=== PATIENT | female | born 1995 | race Caucasian/White ===

== ENCOUNTER 2020-09-30 19:53 | Emergency (ER) | payer OTHER, SELFPAY ==
[2020-09-30 20:19] VITALS: BP 112/64; PULSE 105; RESP 20; TEMP 37.5; O2SAT 99; BMI 45.3
--- NOTE | 2020-09-30 22:25 | ED_ITS ---
HPI - General Adult General Chief complaint: Skin/Abscess/Foreign Body Stated complaint: bug bite Time Seen by Provider: 09/30/20 22:15 Related Data Previous Rx's Medication Instructions Recorded doxycycline hyclate 100 mg PO BID 7 Days #14 cap 09/30/20 Allergies Allergy/AdvReac Type Severity Reaction Status Date / Time aspirin [ASA] Allergy Intermediate ASHTMA Unverified 12/30/19 19:00 STARTS TO ACT UP AND BLOODY NOSE Review of Systems Review of Systems: Constitutional : No Weight loss, No Fever, No Chills, No Night Sweats, No Fatigue, No Malaise ENT/Mouth : No Hearing loss, No Ear Pain, No Nasal Congestion, No Sinus Pain, No Hoarseness, No sore throat, No Rhinorrhea, No Swallowing Difficulty Eyes: No Eye Pain, No Swelling, No Redness, No Foreign Body, No Discharge, No Vision Changes Cardiovascular : No Chest Pain, No SOB, No Dyspnea on Exertion, No Orthopnea, No Edema, No Palpitations Respiratory : No Cough, No Sputum, No Wheezing, No Smoke Exposure, No Dyspnea Gastrointestinal : No Nausea, No Vomiting, No Diarrhea, No Constipation, No abdominal Pain, No Hematochezia, No Melena Genitourinary : no irregular bleeding, No Dysuria, No Urinary Frequency, No Hematuria, No Urinary Incontinence, No Urgency, No Flank Pain, No Urinary Flow Changes, No Hesitancy Musculoskeletal : No joint pain, No Myalgias, No Joint Swelling Skin : No Skin Lesions, No rash, bug bite Neuro : No Weakness, No Numbness, No Paresthesias, No Loss of Consciousness, No Dizziness, No Headache Psych : No Anxiety/Panic, No Depression, No SI/HI/AH/VH, No Social Issues, Heme/Lymph: No Bruising, No Bleeding,No Lymphadenopathy Endocrine : No Polyuria, No Polydipsia, No Temperature Intolerance Yes all other systems are reviewed and are negative [facility] Social History Social History Advance Directives: No Advance Directives Information Provided: No Physical Exam Vital Signs: Vital Signs: Last Vital Signs Temp 98.5 F 09/30/20 23:45 Pulse 91 09/30/20 23:45 Resp 16 09/30/20 23:45 BP 118/66 09/30/20 23:45 Pulse Ox 99 09/30/20 23:45 Body Mass Index 45.3 Const: General: cooperative, healthy appearing and comfortable Resp: Effort & Inspection: normal respiratory effort and able to speak in complete sentences Auscultation: clear to auscultation bilaterally Cardio: Jugular venous distension: no JVD Rate: regular rate Rhythm: regular rhythm Skin: General skin exam: no rashes or lesions noted, elasticity normal, turgor normal and erythema Extrem: General: Yes normal to inspection and Yes capillary refill normal Left lower extremity: edema (Redness and swelling to posterior leg, insect bite area red hard and swolle) Psych: Appearance: grossly normal Mental Status: mental status grossly normal Speech and movement: Normal speech and movement present Affect: normal affect Attitude: cooperative Thought process: Normal thought process present Insight: Good insight present (Psych) Course Course Course Narrative: 25-year-old female is here today for complaints of left lower extremity discomfort after insect bite that happened few days ago. Patient hit her leg today and the scab from scratching came of and started losing clear fluid. Negative for abscess, mild local cellulitis. Patient denies any other symptoms. Will medicate her with doxycycline and send her home on that and ibuprofen for pain. Discharge Plan Discharge Clinical Impression: Cellulitis, Insect bites Patient Disposition: Home, Self-Care Instructions: Cellulitis (ED), Insect Bite or Sting (ED) Additional Instructions: You were seen here today after you were bitten by an insects. You have local skin infection that you will be treated for with antibiotic. He will be given script for ibuprofen and you can take that for pain. Please finish all the antibiotics. Make sure you stay away from the sun. You may return to emergency department if you will develop any concerning symptoms. Please follow-up with your primary care doctor in 3 days to check the side Prescriptions: New doxycycline hyclate 100 mg capsule 100 mg PO BID 7 Days Qty: 14 RF: 0 Interventions: ED Discharge Assessment Last Done: 09/30/20 23:45 Discharge Date/Time: 09/30/20 23:48
[2020-09-30] MEDS: Ibuprofen 600 MG TABLET PO (23:14)
[2020-09-30 23:45] VITALS: BP 118/66; PULSE 91; RESP 16; TEMP 36.9; O2SAT 99
== END 2020-09-30 23:48 | disposition home or self-care (01) ==
PROVIDERS: Emergency Provider Internal Medicine
DX: S80.862A Insect bite (nonvenomous), left lower leg, initial encounter (principal); L03.116 Cellulitis of left lower limb; W57.XXXA Bitten or stung by nonvenomous insect and other nonvenomous arthropods, initial encounter; Y93.9 Activity, unspecified; Y92.9 Unspecified place or not applicable; Y99.9 Unspecified external cause status
CPT/HCPCS: 99283